=== PATIENT | male | born 1950 | race Caucasian/White ===

== ENCOUNTER → 2022-05-08 | Outpatient (CLI) | payer MEDICARE ==
[~2022-05-08] MED LIST: AMLO-387 PO; DABI150C PO; DOXY100C5 PO; ENAL10TA18 PO; FINA5TAB41 PO; GABA-529 PO; HYDR-4060 PO; LEVO-70 PO; METO25TA6 PO
== END | disposition home or self-care (01) ==
LOC: SHCH 08:23
PROVIDERS: ATTEND Internal Medicine Cardiovascular Disease
DX: R09.89 Other specified symptoms and signs involving the circulatory and respiratory systems (principal)
CPT/HCPCS: 93880

== ENCOUNTER 2022-10-18 12:23 | Emergency (ER) | payer MEDICARE ==
[~2022-10-18] VITALS: Ht 172.7 cm; Wt 83.0 kg
[~2022-10-18 12:23] MED LIST changes: +ENAL-89 PO; -ENAL10TA18 PO
[2022-10-18 13:10] LABS: BASOPHILS % (AUTO) 0.2 % (0.0-5.0); EOSINOPHILS % (AUTO) 0.7 % (0.0-8.0); HEMATOCRIT 42.3 % (42-54); LYMPHOCYTES % (AUTO) 6.1 % (21.0-51.0); MEAN CORPUSCULAR HEMOGLOBIN 32.1 pg (27.0-33.0); MEAN CORPUSCULAR HGB CONC 33.8 g/dL (32.0-36.0); MEAN CORPUSCULAR VOLUME 94.8 fL (79-99); MONOCYTES % (AUTO) 9.2 % (3.0-13.0); NEUTROPHILS % (AUTO) 83.2 % (40.0-77.0); PLATELET COUNT (AUTO) 206 K/uL (130-400); RED BLOOD CELL COUNT(AUTO) 4.46 MIL/uL (4.50-6.20); RED CELL DISTRIBUTION WIDTH 14.9 % (11.0-15.5); WHITE BLOOD COUNT (AUTO) 12.6 K/uL (4.8-10.8)
[2022-10-18 13:18] LABS: CREATININE 1.3 mg/dL (0.5-1.5); POTASSIUM 3.4 mmol/L (3.5-5.1)
[2022-10-18 13:23] LABS: ALBUMIN 4.3 g/dL (3.5-5.0); TOTAL PROTEIN, SERUM 7.6 g/dL (6.0-8.3)
[2022-10-18] MEDS ORDERED: ACETAMINOPHEN 500 MG TABLET PO ONE (13:30)
[2022-10-18] MEDS ORDERED: POTASSIUM BICARB/CIT AC 25 MEQ TABLET.EFF PO ONE (14:00)
[2022-10-18] MEDS ORDERED: 0.9%NACL 1000ML 1,000 ML IV ONE (14:00)
[2022-10-18 14:02] LABS: APPEARANCE,URINE CLEAR (CLEAR); BILIRUBIN,URINE NEGATIVE (NEGATIVE); COLOR,URINE LIGHT-YELLOW (YELLOW); GLUCOSE, URINE (UA) NEGATIVE (NEGATIVE); KETONES,URINE NEGATIVE (NEGATIVE); LEUKOCYTE ESTERASE ,URINE NEGATIVE Leu/uL (NEGATIVE); NITRATE,URINE NEGATIVE (NEGATIVE); OCCULT BLOOD,URINE NEGATIVE (NEGATIVE); PROTEIN,URINE 20 mg/dL (NEGATIVE)
[2022-10-18 14:03] LABS: RBC,URINE 0-1 /HPF (0-1); WBC,URINE 0-1 /HPF (0-1)
[2022-10-18] MEDS ORDERED: 0.9% NACL 500ML IV.SOLN 500 ML IV ONE (15:00)
[2022-10-18] MEDS ORDERED: CEFTRIAXONE 1G VIAL IVP ONE (15:00)
[2022-10-18] MEDS ORDERED: AZIT250T9 PO (16:08)
[2022-10-18] MEDS ORDERED: BENZ200C53 PO (16:08)
[2022-10-18] MEDS ORDERED: IBUP-2070 PO (16:08)
[2022-10-18] MEDS ORDERED: ALBU90AE2 IH (16:08)
[2022-10-18] MEDS ORDERED: IBUPROFEN 600 MG TABLET PO ONE (16:30)
[2022-10-18 16:47] VITALS: BP 128/72
== END 2022-10-18 16:59 | disposition home or self-care (01) ==
LOC: EDH 12:23
DX: J20.9 Acute bronchitis, unspecified (principal); I10 Essential (primary) hypertension; E78.00 Pure hypercholesterolemia, unspecified; Z20.822 Contact with and (suspected) exposure to COVID-19; Z79.899 Other long term (current) drug therapy; Z90.89 Acquired absence of other organs
CPT/HCPCS: 99285; 96374; 71045; 96361; 87635; 80053; 85025; 87040 ×2; 87077; 87186; 87880; 87804 ×2; 83605 ×2; 81001; 36415; 93005; C9803; J7040; J0696

== ENCOUNTER → 2023-08-02 | Outpatient (CLI) | payer MEDICARE ==
[~2023-08-02] MED LIST changes: +ALBU90AE2 IH; +AZIT250T9 PO; +BENZ200C53 PO; +IBUP-2070 PO
== END | disposition home or self-care (01) ==
LOC: RAH 10:00
PROVIDERS: ATTEND Family Medicine
DX: M48.061 Spinal stenosis, lumbar region without neurogenic claudication (principal); M47.26 Other spondylosis with radiculopathy, lumbar region; M48.05 Spinal stenosis, thoracolumbar region; M51.36 Other intervertebral disc degeneration, lumbar region; M51.16 Intervertebral disc disorders with radiculopathy, lumbar region
CPT/HCPCS: 72148

== ENCOUNTER → 2023-10-11 | Outpatient (CLI) | payer MEDICARE | END | disposition home or self-care (01) | LOC: RAH 12:26 | PROVIDERS: ATTEND Internal Medicine Cardiovascular Disease | DX: G45.9 Transient cerebral ischemic attack, unspecified (principal); I62.00 Nontraumatic subdural hemorrhage, unspecified | CPT/HCPCS: 70450 ==

== ENCOUNTER → 2023-11-26 | Outpatient (CLI) | payer MEDICARE ==
[~2023-11-26] MED LIST changes: -ALBU90AE2 IH; +ALBU90AE3 IH
[2023-11-26] MEDS: REGADENOSON 0.4 MG/5 ML PF SYG IVP ONE (13:24)
== END | disposition home or self-care (01) ==
LOC: SHCH 07:33
PROVIDERS: ATTEND Internal Medicine Cardiovascular Disease
DX: I48.91 Unspecified atrial fibrillation (principal); R06.09 Other forms of dyspnea; R07.9 Chest pain, unspecified
CPT/HCPCS: 78452; 93017; J2785; A9500 ×2; 96374

== ENCOUNTER 2024-02-28 07:40 | Day surgery (SDC) | payer MEDICARE ==
[2024-02-25 11:15] LABS: BASOPHILS # (AUTO) 0.05 K/uL (0.00-0.20); BASOPHILS % (AUTO) 0.6 % (0.0-5.0); EOSINOPHILS # (AUTO) 0.24 K/uL (0.00-0.70); EOSINOPHILS % (AUTO) 2.9 % (0.0-8.0); HEMATOCRIT 44.1 % (42-54); IMMATURE GRANULOCYTE ABSOLUTE 0.06 K/uL (0-1); LYMPHOCYTES # (AUTO) 1.4 K/uL (1.0-4.8); MEAN CORPUSCULAR HEMOGLOBIN 32.7 pg (27.0-33.0); MEAN CORPUSCULAR HGB CONC 33.6 g/dL (32.0-36.0); MEAN CORPUSCULAR VOLUME 97.6 fL (79-99); MONOCYTES # (AUTO) 0.9 K/uL (0.1-1.0); MONOCYTES % (AUTO) 10.9 % (3.0-13.0); NEUTROPHILS # (AUTO) 5.6 K/uL (1.8-7.7); NEUTROPHILS % (AUTO) 67.9 % (40.0-77.0); PLATELET COUNT (AUTO) 258 K/uL (130-400); RED BLOOD CELL COUNT(AUTO) 4.52 MIL/uL (4.50-6.20); RED CELL DISTRIBUTION WIDTH 14.4 % (11.0-15.5); WHITE BLOOD COUNT (AUTO) 8.3 K/uL (4.8-10.8)
[2024-02-25 11:21] LABS: INR 1.11 (0.85-1.15); PROTHROMBIN TIME 11.9 SEC (9.6-11.6)
[2024-02-25 11:23] LABS: PARTIAL THROMBOPLASTIN TIME 26.2 SEC (26.3-35.5)
[2024-02-25 11:37] VITALS: BP 127/68; PULSE 72; RESP 18; TEMP 97.9
[~2024-02-28] VITALS: Ht 175.3 cm; Wt 77.6 kg
[2024-02-28] VITALS (8 sets, daily range): BP systolic 117–157; BP diastolic 62–82; PULSE 59–69; RESP 14–16; TEMP 97–97.9
[~2024-02-28 07:40] MED LIST changes: -ALBU90AE3 IH; +AMLO-258 PO; -AMLO-387 PO; +APIX5TAB PO; -AZIT250T9 PO; -BENZ200C53 PO; -DABI150C PO; -DOXY100C5 PO; -ENAL-89 PO; -HYDR-4060 PO; -IBUP-2070 PO; -LEVO-70 PO; -METO25TA6 PO; +TRAM50TA4 PO; +VALS320T16 PO; +VITAMIN C PO; +VITAMIN D3 PO
[2024-02-28] MEDS ORDERED: LIDOCAINE HCL 2% VISCOUS 15 ML UDCUP PO ONE (08:30)
[2024-02-28] MEDS: 0.9%NACL 1000ML 1,000 ML IV SCH (08:38)
[2024-02-28] MEDS: MIDAZOLAM HCL 1 MG/ML 2ML VIAL IVP ONE (10:28)
[2024-02-28] MEDS: FENTanyl CITRate PF 50 MCG/1 ML 2ML VIAL IVP ONE (10:30)
== END 2024-02-28 09:40 | disposition home or self-care (01) ==
LOC: DAH 07:40 → EDSTATUS 10:00
PROVIDERS: ATTEND Internal Medicine Cardiovascular Disease
DX: I08.3 Combined rheumatic disorders of mitral, aortic and tricuspid valves (principal); I10 Essential (primary) hypertension; I48.0 Paroxysmal atrial fibrillation; I87.2 Venous insufficiency (chronic) (peripheral); E78.2 Mixed hyperlipidemia; R94.39 Abnormal result of other cardiovascular function study; R01.1 Cardiac murmur, unspecified; Z79.01 Long term (current) use of anticoagulants; Z79.899 Other long term (current) drug therapy
CPT/HCPCS: 80048; 85025; 85610; 85730; 36415; 93312; 93325; J3010; J7030; J2250; A4215; A4222; A4221; A4663; A4216; A4606; A4223 ×3